=== PATIENT | male | born 1950 | race Caucasian/White ===

== ENCOUNTER → 2017-01-09 | Day surgery (SDC) | payer MEDICARE, OTHER ==
[~2017-01-09] VITALS: Ht 177.8 cm; Wt 90.7 kg
[~2017-01-09] MED LIST: 0.9% Sodium Chloride 1,000 ML IV PRN; ASPI-973 PO; GLUC100016 PO; MULT1CAP33 PO; Sodium Chloride LOK Flush 10 mL Syringe IV PRN; fentaNYL-PF 50 mCg/mL 2 mL Inj IVPUSH PRN
[2017-01-09 16:09] VITALS: BP 136/94; PULSE 104; RESP 20; O2SAT 94
--- NOTE | 2017-01-09 17:27 | PCM.ENDCOL ---
Colonoscopy Date of Service: Jan 09, 2017 Physician Orville Winchester MD Pre Procedure Diagnosis: Screening Post Procedure Dx & Findings: Polyp hemorrhoids and diverticula Procedure Colonoscopy PROCEDURE IN DETAIL: Prep adequate Withdrawal time 8 minutes After unremarkable rectal examination the Olympus video colonoscope was inserted patient's anal canal and was advanced to cecum. Landmarks were identified including the ileocecal valve and appendiceal orifice. Scope was withdrawn systematically. Visualized colonic mucosa showed healthy shiny mucosa with normal healthy-appearing vasculature. In the rectosigmoid junction, there were 2 polyps. The largest was about 3-4 mm in size which was removed completely using cold snare. The smaller one was about a millimeter in size which was removed completely using cold snare. In the sigmoid colon there are few small diverticula. In the rectum retroflexion was done which showed hemorrhoids. Anal canal was inspected carefully on the way out and hemorrhoids noted. Impression Polyp 2 status post complete removal Diverticula Hemorrhoids Recommendation Repeat colonoscopy in 5 years Diverticular diet Presedation Assessment Risks and Benefits Informed consent was obtained from the patient after all risks and benefits including but not limited to drug reaction, infection, pain, bleeding, perforation, as well as alternatives were discussed. Patient monitoring Continuous pulse oximetry, cardiac monitoring, blood pressure monitoring, IV access, and oxygen at 2L per nasal cannula. Periprocedural Fentanyl: Fentanyl 100mcg Incrementally Midazolam: Midazolam 5mg Incrementally Complications There were no periprocedural complications identified. Post Procedure Plan Post Procedure Recommendations 1. Restrict activities today. 2. Resume normal activities in the morning. 3. Resume medications. 4. Patient informed of normal post procedure side effects as bloating, drowsiness, blood streaking in the stool. 5. average risk CRCS. If colon polyps come back as: -Hyperplastic- can repeat colonoscopy in 10 years -Tubular adenoma- repeat colonoscopy in 5 years -Tubulovillous/villous adenoma- repeat colonoscopy in 3 years -If any dysplasia- return to clinic as soon as possible 6. Please don't hesitate to call me with any questions. Orville Winchester MD Jan 09, 2017 17:27
[2017-01-09 17:30] VITALS: BP 121/82; PULSE 92; RESP 16; O2SAT 93
[2017-01-09 17:40] VITALS: BP 118/76; PULSE 93; RESP 16; O2SAT 92
[2017-01-09 17:50] VITALS: BP 138/96; PULSE 96; RESP 16; O2SAT 93
--- NOTE | 2017-01-11 15:15 | PATH ---
SURGICAL PATHOLOGY Attending Physician:Orville Winchester M.D. CASE STATUS: Signed Out PATIENT NAME: ALONA WALTON PID: [id number] : 1950 DATE COLLECTED:01/09/2017 00:00 SPECIMEN: Colon, Polyp CLINICAL HISTORY: 1). RECTO-SIGMOID COLON POLYPS FINAL DIAGNOSIS: Rectosigmoid Colon, Polyps, Biopsies: Sessile serrated adenoma x1. Hyperplastic polyp x1. ICD10: K63.5 GROSS DESCRIPTION: The specimen is received in one formalin filled container labeled with the patient's name, sublabeled "recto-sigmoid polyps" and consists of 2 portions of tissue which aggregate to 0.4 x 0.4 x 0.3 CM. The specimen is entirely submitted in one cassette. 01/10/2017DC ICD-9 CODES: CPT CODES: 1: 37472 Electronically Signed Out Naomy Angel MD [facility] [address], [place] [address] Technical component performed at [facility], [facility] [address], [place], [address]
== END | disposition home or self-care (01) ==
LOC: END 00:43
PROVIDERS: ATTEND Internal Medicine
DX: Z12.11 Encounter for screening for malignant neoplasm of colon (principal); D12.7 Benign neoplasm of rectosigmoid junction; K57.30 Diverticulosis of large intestine without perforation or abscess without bleeding; K64.8 Other hemorrhoids; Z86.010 Personal history of colon polyps; Z80.0 Family history of malignant neoplasm of digestive organs; Z79.82 Long term (current) use of aspirin; Z79.899 Other long term (current) drug therapy; Z87.891 Personal history of nicotine dependence
CPT/HCPCS: 45385; 88305; G0500; J2250; J3010; J7030